=== PATIENT | male | born 1960 | race Caucasian/White ===

== ENCOUNTER 2016-10-26 00:06 | Emergency (ER) | payer OTHER ==
[~2016-10-26 00:06] MED LIST: BROC500T PO; COEN400C PO; FISH100020 OR; MULTCAP14 PO; PROSCAP2 OR; VIT250TA PO; VITA100018 PO
[2016-10-26 00:08] VITALS: BP 156/89; PULSE 46; RESP 16; TEMP 97.6; O2SAT 99
[2016-10-26] MEDS ORDERED: RABIES VACCINE CHICK EMB INJ 2.5 UNITS/ML SYR IM ONE (00:45)
--- NOTE | 2016-10-26 00:46 | PD ---
HPI Chief Complaint: Bite or Sting Time Seen by Provider: 00:41 Travel History International Travel<30 days: No Contact w/Intl Traveler<30days: No Traveled to known affect area: No History of Present Illness HPI 56-year-old male presents emergency department complaining of a dog bite. He is an extremely superficial dog bite on the left arm. He states he just barely make out a skin break when he looked with a magnifying glass. He is a little bit of bruising. He states there is a collared stray dog that he was trying to find the home for when he playfully bit him. The dog seem to be a little bit hyper but otherwise acting normally. He did release a dog a is no tags on the collar. He does not have the dog now. Patient has been immunized against rabies twice in the past. He states he completed a full course. Was able to confirm in 2011. See both rabies immune globulin and his initial dose of rabies vaccine. He confirms that he completed the rabies series. History Past Medical History Medical History: Denies Significant Hx Tetanus Vaccination: < 5 Years Influenza Vaccination: No Social History Alcohol Use: No Tobacco Use: No Allergies-Medications (Allergen,Severity, Reaction): Coded Allergies: Penicillin (Verified Allergy, Severe, Rash, 10/26/16) Cipro (Unverified Allergy, Intermediate, Fever, 10/26/16) Reported Meds & Prescriptions Reported Meds & Active Scripts Active No Active Prescriptions or Reported Medications Review of Systems Except as stated in HPI: all other systems reviewed are Neg Physical Exam Narrative GENERAL: Well-appearing 56 year-old woman, no acute distress. SKIN: Warm and dry. CARDIOVASCULAR: Warm and well perfused. RESPIRATORY: Normal rate and effort. MUSCULOSKELETAL: Extremely superficial area of ecchymosis on the left forearm on the volar side with tiny skin break. NEUROLOGICAL: Awake and alert. No gross deficits. Data Data Last Documented VS Vital Signs Date Time Temp Pulse Resp B/P Pulse Ox O2 Delivery O2 Flow Rate FiO2 10/26/16 00:08 97.6 46 16 156/89 99 Room Air Orders Rabies Vaccine Chick Emb Inj (Rabavert I (10/26/16 00:45) MDM Medical Decision Making Medical Screen Exam Complete: Yes Emergency Medical Condition: Yes Differential Diagnosis Contusion, dog bite, other Narrative Course Medical decision making This is a 56-year-old man, he has an extremely superficial wound to his left arm from a dog bite. He is worried about rabies. Conservatively, given that he 's had a rabies series already, he'll be given rabies vaccine booster. No need for rabies immune globulin. Diagnosis Primary Impression: Dog bite Additional Instructions: He received the rabies booster today. My recommendation to get a second booster on day 3. Follow-up with the health Department as discussed. Return to the emergency department for any new or worsening symptoms. Med/Other Pt SpecificInfo: No Change to Meds Scripts No Active Prescriptions or Reported Meds Disposition: 01 DISCHARGE HOME Condition: Stable Joo Espinosa MD Oct 26, 2016 00:46
== END 2016-10-26 01:28 | disposition home or self-care (01) ==
LOC: NEPD 00:06
DX: S50.872A Other superficial bite of left forearm, initial encounter (principal); W54.0XXA Bitten by dog, initial encounter; Z23 Encounter for immunization
CPT/HCPCS: 90471; 90675